=== PATIENT | female | born 1980 | race Caucasian/White ===

== ENCOUNTER 2023-07-03 13:43 | Outpatient (CLI) | payer BC, SELFPAY | END 2023-07-03 13:44 | disposition home or self-care (01) | PROVIDERS: Visit Provider Emergency Medicine | DX: Z00.00 Encounter for general adult medical examination without abnormal findings (principal); E78.5 Hyperlipidemia, unspecified; I10 Essential (primary) hypertension; E66.9 Obesity, unspecified; D50.9 Iron deficiency anemia, unspecified | CPT/HCPCS: 80061; 80076; 82728 ==

== ENCOUNTER 2023-07-23 16:08 | Outpatient (CLI) | payer BC, SELFPAY | END 2023-07-23 16:09 | disposition home or self-care (01) | LOC: LKVREF 16:08 | PROVIDERS: Visit Provider Emergency Medicine | DX: Z00.00 Encounter for general adult medical examination without abnormal findings (principal); E11.69 Type 2 diabetes mellitus with other specified complication; E66.9 Obesity, unspecified | CPT/HCPCS: 82043; 82570 ==

== ENCOUNTER 2023-10-22 16:20 | Outpatient (CLI) | payer BC, SELFPAY | END 2023-10-22 16:21 | disposition home or self-care (01) | LOC: LKVREF 16:21 | PROVIDERS: Visit Provider Emergency Medicine | DX: E78.5 Hyperlipidemia, unspecified (principal); E11.69 Type 2 diabetes mellitus with other specified complication | CPT/HCPCS: 80061 ==